=== PATIENT | male | born 1960 | race Asian ===

== ENCOUNTER 2025-01-22 05:08 | Inpatient (IN) | payer MEDICARE ==
[2025-01-19 11:52] LABS: BASOPHILS # (AUTO) 0.1 (0.0-0.1); EOSINOPHILS # (AUTO) 0.5 (0.0-0.4); EOSINOPHILS % 7.9 % (0.0-6.0); HEMATOCRIT 44.2 % (38.2-49.6); HEMOGLOBIN 14.8 g/dL (14.0-18.0); LYMPHOCYTES # (AUTO) 1.4 (1.0-3.2); LYMPHOCYTES % 22.8 % (18.0-39.1); MEAN CORPUSCULAR HEMOGLOBIN 29.5 pg (28-32); MEAN CORPUSCULAR HGB CONC 33.5 g/dL (31-35); MEAN CORPUSCULAR VOLUME 88.2 fL (81-99); MONOCYTES # (AUTO) 0.5 (0.2-0.8); MONOCYTES % 7.9 % (4.4-11.3); NEUTROPHILS # (AUTO) 3.8 (2.1-6.9); NEUTROPHILS % 60.1 % (38.7-80.0); PLATELET COUNT 249 x10e3/uL (140-360); RED BLOOD COUNT 5.01 x10e6/uL (4.3-5.7); RED CELL DISTRIBUTION WIDTH 12.8 % (11.7-14.4); WHITE BLOOD COUNT 6.24 x10e3/uL (4.8-10.8)
[2025-01-19 12:18] LABS: ANION GAP 11.9 mmol/L (8-16); CALCIUM 8.9 mg/dL (8.4-10.2); CREATININE, SERUM 1.02 mg/dL (0.72-1.25); POTASSIUM 3.9 mmol/L (3.5-5.1)
[~2025-01-22] VITALS: Ht 165.1 cm; Wt 63.5 kg
[~2025-01-22 05:08] MED LIST: AMLODIPINE BESYL5 MG PO; ATORVASTATIN CA10 MG PO; BIOFLEX TABLET1 EAC1; FLOMAX0.4 MG PO; KERENDIA10 MG PO; LOSARTAN POTAS100 MG PO; SYMBICORT 16010.2 GM INH
[2025-01-22] MEDS: SODIUM CHLORIDE 0.9% 1000ML 1,000 ML ONE (06:03)
[2025-01-22] MEDS: GENTAMICIN 80MG/NS 100 ML 200 ML IV ONE (06:04)
[2025-01-22] MEDS: PIPERACILLIN/TAZOBACTAM 3.375 GM VIAL ONE (06:04)
[2025-01-22] MEDS ORDERED: PROPOFOL IV EMULSION 10 MG/ML 20 ML VIAL ONE (06:34)
[2025-01-22] MEDS ORDERED: FENTANYL CITRATE/PF 100MCG/2 ML INJ ONE (06:35)
[2025-01-22] MEDS ORDERED: MIDAZOLAM HCL 2 MG/2 ML VIAL ONE (06:35)
[2025-01-22] MEDS ORDERED: LIDOCAINE HCL 2% LOCAL INJ 5 ML SDV VIAL INJ ONE (06:35)
[2025-01-22] MEDS ORDERED: SODIUM CHLORIDE 0.9% 100 ML ONE (06:35)
[2025-01-22] MEDS ORDERED: DEXAMETHASONE SOD PHOS INJ 4 MG/ML SDV ONE (06:36)
[2025-01-22] MEDS ORDERED: ONDANSETRON HCL INJ 2MG/ML 2ML 2 MG/ML VIAL ONE (06:36)
[2025-01-22] MEDS ORDERED: PHENYLEPHRINE HCL 1% 10 MG/ML VIAL ONE (06:36)
[2025-01-22] MEDS ORDERED: GENTAMICIN SULFATE 40 MG/ML 2 ML VIAL ONE (07:33)
[2025-01-22] MEDS ORDERED: PHENAZOPYRIDINE HCL 100 MG TAB PO PRN (09:15)
[2025-01-22] MEDS ORDERED: Morphine 2mg Syringe 2 MG/ML SYR IV PRN (09:15)
[2025-01-22] MEDS ORDERED: ACETAMINOPHEN/CODEINE 300MG - 30MG TAB PO PRN (09:15)
[2025-01-22] MEDS ORDERED: ONDANSETRON HCL INJ 2MG/ML 2ML 2 MG/ML VIAL IV PRN (09:15)
[2025-01-22] MEDS ORDERED: DIPHENHYDRAMINE HCL 25 MG CAP PO PRN (09:15)
[2025-01-22] MEDS ORDERED: ACETAMINOPHEN 1000 MG/100 ML IV PRN (09:15)
[2025-01-22 09:29] LABS: BASOPHILS % 0.3 % (0.0-1.0); EOSINOPHILS # (AUTO) 0.6 (0.0-0.4); EOSINOPHILS % 4.9 % (0.0-6.0); HEMOGLOBIN 11.2 g/dL (14.0-18.0); LYMPHOCYTES # (AUTO) 2.3 (1.0-3.2); LYMPHOCYTES % 19.1 % (18.0-39.1); MEAN CORPUSCULAR HEMOGLOBIN 29.7 pg (28-32); MEAN CORPUSCULAR HGB CONC 32.9 g/dL (31-35); MEAN CORPUSCULAR VOLUME 90.2 fL (81-99); MONOCYTES # (AUTO) 0.5 (0.2-0.8); NEUTROPHILS # (AUTO) 8.6 (2.1-6.9); NEUTROPHILS % 71.3 % (38.7-80.0); PLATELET COUNT 196 x10e3/uL (140-360); RED BLOOD COUNT 3.77 x10e6/uL (4.3-5.7); RED CELL DISTRIBUTION WIDTH 12.8 % (11.7-14.4); WHITE BLOOD COUNT 12.04 x10e3/uL (4.8-10.8)
[2025-01-22 09:55] LABS: ANION GAP 8.4 mmol/L (8-16); CREATININE, SERUM 0.86 mg/dL (0.72-1.25); POTASSIUM 4.4 mmol/L (3.5-5.1)
[2025-01-22 10:00] LABS: CALCIUM 6.8 mg/dL (8.4-10.2)
[2025-01-22 11:02] VITALS: BP 129/77; PULSE 88; RESP 17; TEMP 97.6; O2SAT 96
[2025-01-22] MEDS: SODIUM CHLORIDE 0.9% 1000ML 1,000 ML IV SCH (11:03)
[2025-01-22 11:43] VITALS: PULSE 88; RESP 16; O2SAT 100
[2025-01-22] MEDS ORDERED: SEVOFLURANE INHAL SOLN 250 ML PEN BTL ONE (15:23)
[2025-01-22] MEDS: CALCIUM CARBONATE 500 MG CHEWABLE TABS PO SCH (15:37)
[2025-01-22 16:02] VITALS: BP 125/73; PULSE 67; RESP 17; TEMP 98; O2SAT 100
[2025-01-22] MEDS: SENNA-S TABLET PO SCH (17:10)
[2025-01-22 19:05] VITALS: PULSE 82; RESP 18; O2SAT 98
[2025-01-22 20:00] VITALS: BP 124/69; PULSE 81; RESP 16; TEMP 98.8; O2SAT 99
[2025-01-23] VITALS (12 sets, daily range): BP systolic 117–142; BP diastolic 67–83; PULSE 63–85; RESP 16–19; TEMP 98–99.1; O2SAT 95–99
[2025-01-23 05:11] LABS: BASOPHILS % 0.1 % (0.0-1.0); EOSINOPHILS % 0.3 % (0.0-6.0); HEMATOCRIT 36.2 % (38.2-49.6); HEMOGLOBIN 11.8 g/dL (14.0-18.0); LYMPHOCYTES # (AUTO) 1.4 (1.0-3.2); LYMPHOCYTES % 13.3 % (18.0-39.1); MEAN CORPUSCULAR HEMOGLOBIN 29.1 pg (28-32); MEAN CORPUSCULAR HGB CONC 32.6 g/dL (31-35); MEAN CORPUSCULAR VOLUME 89.4 fL (81-99); MONOCYTES # (AUTO) 0.7 (0.2-0.8); MONOCYTES % 6.9 % (4.4-11.3); NEUTROPHILS # (AUTO) 8.1 (2.1-6.9); PLATELET COUNT 226 x10e3/uL (140-360); RED BLOOD COUNT 4.05 x10e6/uL (4.3-5.7); RED CELL DISTRIBUTION WIDTH 12.7 % (11.7-14.4); WHITE BLOOD COUNT 10.27 x10e3/uL (4.8-10.8)
[2025-01-23 05:41] LABS: ANION GAP 11.9 mmol/L (8-16); CALCIUM 8.1 mg/dL (8.4-10.2); CREATININE, SERUM 0.84 mg/dL (0.72-1.25); POTASSIUM 3.9 mmol/L (3.5-5.1)
[2025-01-23] MEDS ORDERED: ACETAMINOPHEN 325 MG TAB PO PRN (08:00)
[2025-01-23] MEDS ORDERED: ONDANSETRON HCL INJ 2MG/ML 2ML 2 MG/ML VIAL IV PRN (08:00)
[2025-01-23] MEDS: BUDESONIDE/FORMOTEROL 160/4.5MCG INHALER INH SCH (08:23)
[2025-01-23] MEDS: TAMSULOSIN HCL 0.4 MG CAP PO SCH (09:06)
[2025-01-23] MEDS: AMLODIPINE BESYLATE 5 MG TAB PO SCH (09:06)
[2025-01-23] MEDS: ATORVASTATIN 10 MG TAB PO SCH (19:58)
[2025-01-24] VITALS (10 sets, daily range): BP systolic 118–134; BP diastolic 76–85; PULSE 62–75; RESP 17–20; TEMP 97.6–98.6; O2SAT 95–99
[2025-01-24 06:17] LABS: BASOPHILS % 0.4 % (0.0-1.0); EOSINOPHILS # (AUTO) 0.3 (0.0-0.4); EOSINOPHILS % 3.8 % (0.0-6.0); HEMATOCRIT 34.5 % (38.2-49.6); HEMOGLOBIN 11.6 g/dL (14.0-18.0); LYMPHOCYTES # (AUTO) 2.2 (1.0-3.2); LYMPHOCYTES % 26.5 % (18.0-39.1); MEAN CORPUSCULAR HEMOGLOBIN 29.2 pg (28-32); MEAN CORPUSCULAR HGB CONC 33.6 g/dL (31-35); MEAN CORPUSCULAR VOLUME 86.9 fL (81-99); MONOCYTES # (AUTO) 0.6 (0.2-0.8); MONOCYTES % 7.3 % (4.4-11.3); NEUTROPHILS # (AUTO) 5.2 (2.1-6.9); NEUTROPHILS % 61.6 % (38.7-80.0); PLATELET COUNT 208 x10e3/uL (140-360); RED BLOOD COUNT 3.97 x10e6/uL (4.3-5.7); RED CELL DISTRIBUTION WIDTH 12.9 % (11.7-14.4); WHITE BLOOD COUNT 8.35 x10e3/uL (4.8-10.8)
[2025-01-24 06:46] LABS: ANION GAP 11.5 mmol/L (8-16); CALCIUM 8.4 mg/dL (8.4-10.2); CREATININE, SERUM 0.81 mg/dL (0.72-1.25); POTASSIUM 3.5 mmol/L (3.5-5.1)
[2025-01-25] VITALS: BP 122/78; PULSE 62; RESP 18; TEMP 98.3; O2SAT 98
[2025-01-25 04:00] VITALS: BP 121/73; PULSE 62; RESP 18; TEMP 98.5; O2SAT 97
[2025-01-25 05:59] LABS: BASOPHILS % 0.3 % (0.0-1.0); EOSINOPHILS # (AUTO) 0.4 (0.0-0.4); HEMATOCRIT 35.7 % (38.2-49.6); HEMOGLOBIN 12.1 g/dL (14.0-18.0); LYMPHOCYTES # (AUTO) 1.6 (1.0-3.2); MEAN CORPUSCULAR HEMOGLOBIN 29.4 pg (28-32); MEAN CORPUSCULAR HGB CONC 33.9 g/dL (31-35); MEAN CORPUSCULAR VOLUME 86.9 fL (81-99); MONOCYTES # (AUTO) 0.8 (0.2-0.8); MONOCYTES % 8.9 % (4.4-11.3); NEUTROPHILS % 68.6 % (38.7-80.0); PLATELET COUNT 210 x10e3/uL (140-360); RED BLOOD COUNT 4.11 x10e6/uL (4.3-5.7); RED CELL DISTRIBUTION WIDTH 12.6 % (11.7-14.4); WHITE BLOOD COUNT 8.68 x10e3/uL (4.8-10.8)
[2025-01-25 06:27] LABS: ANION GAP 10.6 mmol/L (8-16); CALCIUM 8.4 mg/dL (8.4-10.2); CREATININE, SERUM 0.83 mg/dL (0.72-1.25); POTASSIUM 3.6 mmol/L (3.5-5.1)
[2025-01-25 06:32] VITALS: PULSE 74; RESP 20; O2SAT 98
[2025-01-25 08:14] VITALS: BP 129/89; PULSE 74; RESP 18; TEMP 98.5; O2SAT 97
[2025-01-25 11:18] VITALS: BP 129/89; PULSE 74; RESP 18; TEMP 98.5; O2SAT 97
[2025-01-25 11:50] VITALS: BP 137/90; PULSE 74; RESP 18; TEMP 98.7; O2SAT 100
[2025-01-25] MEDS ORDERED: SENNA S TABLET1 EACH PO (12:40)
[2025-01-25] MEDS ORDERED: ONDANSETRON ODT4 MG PO (12:42)
[2025-01-25] MEDS ORDERED: ACETAMINOPHEN325 M1 PO (12:42)
== END 2025-01-25 15:37 | disposition home or self-care (01) | DRG 713 ==
LOC: OR 05:08 → PACU V 09:05 → MED/SURG 10:13 → MED/SURG3 01-23 21:45
PROVIDERS: ADMIT Internal Medicine; ATTEND Internal Medicine
PROC: 0T7D8ZZ Dilation of Urethra, Via Natural or Artificial Opening Endoscopic (ICD-10-PCS; 2025-01-22)
PROC: BT141ZZ Fluoroscopy of Kidneys, Ureters and Bladder using Low Osmolar Contrast (ICD-10-PCS; 2025-01-22)
PROC: 0T9B70Z Drainage of Bladder with Drainage Device, Via Natural or Artificial Opening (ICD-10-PCS; 2025-01-22)
PROC: 0VB08ZZ Excision of Prostate, Via Natural or Artificial Opening Endoscopic (ICD-10-PCS; principal; 2025-01-22 07:23)
PROC: 0VB03ZX Excision of Prostate, Percutaneous Approach, Diagnostic (ICD-10-PCS; 2025-01-22 07:23)
DX: N40.1 Benign prostatic hyperplasia with lower urinary tract symptoms (principal); D62 Acute posthemorrhagic anemia; N13.8 Other obstructive and reflux uropathy; C61 Malignant neoplasm of prostate; R31.0 Gross hematuria; I10 Essential (primary) hypertension; E78.5 Hyperlipidemia, unspecified; R39.14 Feeling of incomplete bladder emptying; N35.912 Unspecified bulbous urethral stricture, male; Z87.440 Personal history of urinary (tract) infections; Z79.51 Long term (current) use of inhaled steroids; Z87.891 Personal history of nicotine dependence
CPT/HCPCS: 36415; 71046; 74420; 76872; 76998; 80048; 83735; 85025; 88305; 88342; 93005; 94664; 94799; 99252; J1100; J1580; J2003; J2250; J2371; J2405; J2543; J7030; J7050